=== PATIENT | male | born 1945 | race Caucasian/White ===

== ENCOUNTER 2022-03-21 14:57 | Emergency (ER) | payer OTHER ==
[~2022-03-21] VITALS: Ht 185.4 cm; Wt 104.3 kg
[2022-03-21 15:20] VITALS: BP_SYST 132
--- NOTE | 2022-03-21 15:30 | NUR ---
Placed in room 1 . Placed on cardiac cath technician, blood pressure machine and pulse oximeter. To gown for exam. Side rails up.
--- NOTE | 2022-03-21 15:35 | NUR ---
PT BIB FROM [facility] REFERERRED FOR ELEVATED BUN AND CREATANINE LAB LEVELS. PT IS AMBULATORY, [id number], VSS
--- NOTE | 2022-03-21 15:48 | NUR ---
PORTABLE XRAY AT THE BEDSIDE
--- NOTE | 2022-03-21 15:53 | NUR ---
ULTRASOUND AT THE BEDSIDE
--- NOTE | 2022-03-21 16:34 | NUR ---
# 20 gauge angiocath placed to RAC. Use of asceptic technique. Opsite placed over site. Blood return noted. Flushed with 10 cc of normal saline. No evidence of infiltration noted. Patient tolerated well.
[2022-03-21 16:45] LABS: BASOPHILS # (AUTO) 0.1 K/uL (0.0-0.2); BASOPHILS % (AUTO) 1.3 % (0.0-2.0); EOSINOPHILS # (AUTO) 0.2 K/uL (0.0-0.4); EOSINOPHILS % (AUTO) 1.9 % (0.0-4.0); HEMATOCRIT 35.8 % (36-54); HEMOGLOBIN 11.8 g/dL (14.0-18.0); LYMPHOCYTES # (AUTO) 1.7 K/uL (1.0-5.5); LYMPHOCYTES % (AUTO) 16.5 % (20.5-51.5); MEAN CORPUSCULAR HEMOGLOBIN 28 pg (27-31); MEAN CORPUSCULAR HGB CONC 33 % (32-36); MEAN CORPUSCULAR VOLUME 86 fL (79.0-98.0); MONOCYTES # (AUTO) 0.9 K/uL (0.0-1.0); MONOCYTES % (AUTO) 8.4 % (1.7-9.3); NEUTROPHILS # (AUTO) 7.5 K/uL (1.8-7.7); NEUTROPHILS % (AUTO) 71.9 % (40.0-70.0); PLATELET COUNT (AUTO) 285 K/uL (130-430); RED BLOOD CELL COUNT(AUTO) 4.14 MIL/uL (4.2-6.2); RED CELL DISTRIBUTION WIDTH 16.2 % (9.0-15.0); WHITE BLOOD COUNT (AUTO) 10.4 K/uL (4.8-10.8)
[2022-03-21] MEDS ORDERED: dilTIAZem HCL IVP 5 MG/ML VIAL IVP ONE (16:45)
[2022-03-21] MEDS ORDERED: DILTIAZEM HCL 60 MG TABLET PO ONE (16:45)
[2022-03-21 16:54] LABS: ANION GAP 7 (5-15); CALCIUM 9.1 mg/dL (8.4-11.0); CHLORIDE 102 mmol/L (98-107); GLUCOSE 94 mg/dL (70-99); POTASSIUM 3.6 mmol/L (3.5-5.1); SODIUM SERUM 136 mmol/L (136-145); UREA NITROGEN, BLOOD 40 mg/dL (8-21)
[2022-03-21 16:59] LABS: INR 1.1 (0.80-1.20); PROTHROMBIN TIME 11.1 SECS (9.5-12.5)
[2022-03-21 17:03] LABS: ALANINE AMINOTRANSFERASE 22 U/L (12-78); ALBUMIN 3.3 g/dL (3.4-4.8); ASPARTATE AMINOTRANSFERASE 20 U/L (10-37); TOTAL BILIRUBIN 0.6 mg/dL (0.0-1.0)
--- NOTE | 2022-03-21 18:23 | NUR ---
Patient does not wish to proceed with medical care recommended by ER DR. BANERJEE. Patient given information related to possible complications, up to and including , which could occur as a result of leaving hospital at this time. Patient verbalizes understanding of risks involved leaving against medical advice. Patient has signed AMA form.
[2022-03-21 18:24] VITALS: BP_SYST 140
== END 2022-03-21 18:24 | disposition left against medical advice (07) ==
LOC: SED 14:57
DX: R60.9 Edema, unspecified (principal); I48.20 Chronic atrial fibrillation, unspecified; Z79.899 Other long term (current) drug therapy
CPT/HCPCS: 99285; 96374; 93971; 71045; 80053; 83880; 85025; 85610; 85730; 84484; 36415; 93005; J3490